=== PATIENT | male | born 1960 | race African-American/Black ===

== ENCOUNTER 2016-12-15 19:42 | Emergency (ER) | payer SELFPAY ==
[~2016-12-15] VITALS: Ht 185.4 cm; Wt 81.6 kg
[2016-12-15 19:49] VITALS: BP 126/85
[2016-12-15] MEDS ORDERED: UNOBMED (19:53)
[2016-12-15 20:22] VITALS: BP 126/85
--- NOTE | 2016-12-15 21:38 | Emergency Room Report ---
History of Present Illness General Chief Complaint: General Complaint Source: Patient Present Illness HPI The patient is a 56-year-old male brought in by ambulance from the street for feet pain. The patient does not have any shoes and states that he has been walking more than usual. Pain described as a 10 out of 10 dull ache to the bottom of both feet and does not radiate. Worse with walking. He denies any known injury. Denies any numbness or tingling. He denies other symptoms including N, V, F, chills, SOB, calf pain/swelling, rash Allergies: Coded Allergies: DIVALPROEX SODIUM (Unverified Allergy, Unknown, 12/15/16) Patient History Past Medical History: see triage record Pertinent Family History: none Reviewed Nursing Documentation: PMH: Agreed, PSxH: Agreed Nursing Documentation-PM Past Medical History: No History, Except For Hx Seizures: Yes Review of Systems All Other Systems: negative except mentioned in HPI Physical Exam Vital Signs Date Time Temp Pulse Resp B/P Pulse Ox O2 Delivery O2 Flow Rate FiO2 12/15/16 19:39 98.2 91 16 126/85 97 Room Air Sp02 EP Interpretation: reviewed, normal General Appearance: no apparent distress, alert, GCS 15, non-toxic Head: normocephalic, atraumatic Eyes: bilateral eye PERRL, bilateral eye normal inspection ENT: hearing grossly normal, normal pharynx, no angioedema, normal voice Musculoskeletal: back normal, gait/station normal, normal range of motion, tender - plantar surface of bilat feet Neurologic: alert, responsive, sensory intact Skin: normal color, no rash, warm/dry, well hydrated Medical Decision Making PA Attestation Dr. Luis is my supervising physician. Patient management was discussed with my supervising physician Diagnostic Impression: Primary Impression: Pain in both feet ER Course The patient is a 56-year-old male brought in by ambulance from the street for feet pain Ddx considered include but not limited to sprain/strain, fracture, contusion, plantar fasciitis, among others PE: NAD TTP to bilat plantar surfaces of feet. Otherwise unremarkable. No skin changes. Normal gait Pt is given motrin and shoes Upon re-evaluation, the patient has attempted to place the end of a power cord into his rectum. He will be DC'ed Last Vital Signs Date Time Temp Pulse Resp B/P Pulse Ox O2 Delivery O2 Flow Rate FiO2 12/15/16 19:49 98.2 16 126/85 97 Room Air 12/15/16 19:39 91 Status: improved Disposition: ELOPED Condition: Stable Referrals: NOT CHOSEN IPA/,REFERRING (PCP) JOSE FRANCISCO BUSTOS Dec 15, 2016 21:38
== END 2016-12-15 20:22 | disposition left against medical advice (07) ==
LOC: EDBD 19:42 → EMR 19:52
DX: M79.672 Pain in left foot (principal); M79.671 Pain in right foot
CPT/HCPCS: 99283